=== PATIENT | female | born 1965 | race Caucasian/White ===

== ENCOUNTER → 2020-12-29 | Outpatient (CLI) | payer BC ==
--- NOTE | 2020-12-29 11:58 | CARD ---
MR#: [id number] Date of Study: 12/29/2020 Ordering Physician: EDUARDO LEW, Referring Physician: EUDARDO LEW, Tech: Valerio Blank APPROVED REPORT EXAM: Two-dimensional and M-mode echocardiogram with Doppler and color Doppler. Other Information Quality : GoodHR: 69bpm Rhythm : NSR INDICATION Cardiomyopathy 2D DIMENSIONS Left Atrium(2D)3.2 (1.6-4.0cm)IVSd0.9 (0.7-1.1cm) Aortic Root(2D)3.1 (2.0-3.7cm)LVDd4.8 (3.9-5.9cm) LVOT Diameter2.2 (1.8-2.4cm)PWd0.9 (0.7-1.1cm) IVSs1.0 (0.8-1.2cm)LVDs3.6 (2.5-4.0cm) FS (%) 25.1 %PWs1.5 (0.8-1.2cm) SV53.2 mlLVEF(%)49.6 (>50%) Aortic Valve AoV Peak Sukhdev.108.2cm/sAoV VTI22.6cm AO Peak GR.4.7mmHgLVOT Peak Sukhdev.68.7cm/s LVOT VTI 16.28cmAO Mean GR.3mmHg CAROLE (VMAX)1.18ms9NFR (VTI)2.62cm2 Mitral Valve MV E Cfhqicmh25.0cm/sMV DECEL [id number] MV A Qrnheojz85.5cm/sMV FIX11ic E/A Ratio1.0MVA (PHT)5.04cm2 TDI E/Lateral E'12.6E/Medial E'9.9 Pulmonary Valve PV Peak Mwxqytzf89.8cm/sPV Peak Grad.2mmHg Tricuspid Valve TR P. Ynoerjqz204ac/sTR Peak Gr.13mmHg LEFT VENTRICLE The left ventricle is normal size. There is normal left ventricular wall thickness. The left ventricu lar systolic function is low normal. The ejection fraction is 50%. There is normal LV segmental wall motion. The left ventricular diastolic function and filling is normal for age. No left ventricle thro mbus noted on this study. There is no ventricular septal defect visualized. RIGHT VENTRICLE The right ventricle is normal size. There is normal right ventricular wall thickness. The right ventr icular systolic function is normal. ATRIA The left atrium is mildly dilated. The right atrium size is normal. The interatrial septum is intact with no evidence for an atrial septal defect or patent foramen ovale as noted on 2-D or Doppler imagi ng. AORTIC VALVE The aortic valve is normal in structure and function. Doppler and Color Flow revealed no significant aortic regurgitation. There is no significant aortic valvular stenosis. There is no aortic valvular v egetation. MITRAL VALVE The mitral valve is normal in structure and function. There is no evidence of mitral valve prolapse. There is no mitral valve stenosis. Doppler and Color-flow revealed mild to moderate mitral regurgitat ion. TRICUSPID VALVE The tricuspid valve is normal in structure and function. Doppler and Color Flow revealed trace tricus pid regurgitation. There is no tricuspid valve prolapse or vegetation. There is no tricuspid valve st enosis. PULMONIC VALVE The pulmonary valve is normal in structure and function. Doppler and Color Flow revealed no pulmonic valvular regurgitation. There is no pulmonic valvular stenosis. GREAT VESSELS The aortic root is normal in size. The ascending aorta is normal in size. The pulmonary artery is nor mal. The IVC is normal in size and collapses >50% with inspiration. PERICARDIAL EFFUSION There is no pleural effusion. There is no evidence of significant pericardial effusion. Critical Notification Critical Value: No <Conclusion> The left ventricular systolic function is low normal. The ejection fraction is 50%. There is normal LV segmental wall motion. Mild to moderate mitral regurgitation. Trace tricuspid regurgitation. There is no evidence of significant pericardial effusion. Signed by : Anand Lizarraga, Electronically Approved : 12/29/2020 11:58:34
== END ==
LOC: ECHO 09:02
PROVIDERS: ATTEND Internal Medicine Cardiovascular Disease
DX: I34.0 Nonrheumatic mitral (valve) insufficiency (principal); I42.9 Cardiomyopathy, unspecified
CPT/HCPCS: 93306